=== PATIENT | female | born 1975 | race Caucasian/White ===

== ENCOUNTER → 2024-11-14 | Outpatient (CLI) | payer SELFPAY ==
--- NOTE | 2024-11-14 16:17 | US_ITS ---
PROCEDURE: THYROID 11/14/2024 REASON FOR EXAM: SINGLE NODULE TECHNIQUE: THYROID COMPARISON: None FINDINGS: Right thyroid lobe size: 4.7 x 1.3 x 1.7 cm Left thyroid lobe size: 4.7 x 1.4 x 1.4 cm Isthmus: 0.24 cm Background parenchymal echotexture is homogeneous. Nodules: Left thyroid lobe midpole hypoechoic nodule with increased vascularity, nodule measures 1.8 x 1.2 x 1.1 cm. US/Thyroid IMPRESSION: Left thyroid lobe TR4 nodule. FNA is recommended. Reading [facility] [id number]
== END | disposition home or self-care (01) ==
LOC: US 16:13
PROVIDERS: PCP Physician Assistant; Referring Provider Physician Assistant; Visit Provider Physician Assistant
DX: E04.1 Nontoxic single thyroid nodule (principal)
CPT/HCPCS: 76536